=== PATIENT | male | born 1980 | race African-American/Black ===

== ENCOUNTER 2018-03-02 18:32 | Emergency (ER) | payer SELFPAY ==
[~2018-03-02] VITALS: Ht 160 cm; Wt 59.0 kg
[2018-03-02 19:25] VITALS: BP 168/109
[2018-03-02] MEDS ORDERED: VENTOLIN HFA18 GM INH (19:47)
[2018-03-02] MEDS ORDERED: AZIT250T PO (19:47)
[2018-03-02] MEDS ORDERED: PRED50TA PO (19:47)
[2018-03-02] MEDS ORDERED: BENZ100C PO (19:47)
--- NOTE | 2018-03-02 19:49 | PHYS DOC ---
Past Medical History Past Medical History: No Pertinent History Past Surgical History: No Surgical History Alcohol Use: Occasionally Drug Use: None Adult General Chief Complaint Chief Complaint: COUGH HPI HPI Patient is a 37 year old male with history of bronchitis who presents today complaining over productive cough for years. Patient states he used to be a chain smoker and stopped smoking recently. Patient states for the last 1-2 weeks as noted his coughing has gotten worse especially when he is outside in the cold. Patient denies any fever. Denies any chest pain or shortness of breath. He states his symptoms feel like bronchitis. Review of Systems Review of Systems Constitutional: Denies fever or chills [] Eyes: Denies change in visual acuity, redness, or eye pain [] HENT: Denies nasal congestion or sore throat [] Respiratory: Reports a productive cough, denies shortness of breath [] Cardiovascular: No additional information not addressed in HPI [] GI: Denies abdominal pain, nausea, vomiting, bloody stools or diarrhea [] : Denies dysuria or hematuria [] Musculoskeletal: Denies back pain or joint pain [] Integument: Denies rash or skin lesions [] Neurologic: Denies headache, focal weakness or sensory changes [] All other systems were reviewed and found to be within normal limits, except as documented in this note. Current Medications Current Medications Current Medications Medications (Trade) Dose Ordered Sig/Latasha Start Time Stop Time Status Last Admin Dose Admin Albuterol/ Ipratropium (Duoneb) 3 ml 1X ONCE 03/02/18 20:00 03/02/18 20:01 Benzonatate (Tessalon Perle) 100 mg 1X ONCE 03/02/18 20:00 03/02/18 20:01 03/02/18 19:37 100 MG Prednisone (Prednisone) 60 mg 1X ONCE 03/02/18 20:00 03/02/18 20:01 03/02/18 19:37 60 MG Allergies Allergies Allergies Coded Allergies Type Severity Reaction Last Updated Verified No Known Drug Allergies 03/02/18 No Physical Exam Physical Exam Constitutional: Well developed, well nourished, no acute distress, non-toxic appearance. [] HENT: Normocephalic, atraumatic, bilateral external ears normal, oropharynx moist, no oral exudates, nose normal. [] Eyes: PERRLA, EOMI, conjunctiva normal, no discharge. [] Neck: Normal range of motion, no tenderness, supple, no stridor. [] Cardiovascular:Heart rate regular rhythm, no murmur [] Lungs & Thorax: Bilateral breath sounds clear to auscultation [] Abdomen: Bowel sounds normal, soft, no tenderness, no masses, no pulsatile masses. [] Skin: Warm, dry, no erythema, no rash. [] Back: No tenderness, no CVA tenderness. [] Extremities: No tenderness, no cyanosis, no clubbing, ROM intact, no edema. [] Neurologic: Alert and oriented X 3, normal motor function, normal sensory function, no focal deficits noted. [] Psychologic: Affect normal, judgement normal, mood normal. [] Current Patient Data Vital Signs Vital Signs Date Time Temp Pulse Resp B/P (MAP) Pulse Ox O2 Delivery O2 Flow Rate FiO2 03/02/18 19:25 98.3 112 20 168/109 (128) 95 Room Air 98.3 EKG EKG [] Radiology/Procedures Radiology/Procedures [] Course & Med Decision Making Course & Med Decision Making Pertinent Labs and Imaging studies reviewed. (See chart for details) This is a 37-year-old male patient presenting to the ED today with symptoms consistent of bronchitis. Will be discharged with albuterol inhaler, prednisone and Tessalon Perles. Follow-up with PCP in 1-2 weeks. Provided return precautions and discharged in stable condition.Significant other requesting we give antibiotics to cover him for pneumonia. Informed them this is probably viral bronchitis. Prescription for azithromycin given. Blood pressure was 168/109, no history of hypertension. Encouraged this patient to follow-up with her PCP for blood pressure monitoring. He has no cardiac or neurological symptoms. Dragon Disclaimer Dragon Disclaimer This electronic medical record was generated, in whole or in part, using a voice recognition dictation system. Departure Departure Impression: Primary Impression: Acute bronchitis Additional Impression: High blood pressure Disposition: 01 HOME, SELF-CARE Condition: STABLE Referrals: NO PCP (PCP) Follow-up with her primary care doctor in 1-2 weeks Patient Instructions: Acute Bronchitis, Hypertension Additional Instructions: You were evaluated in the emergency room for bronchitis. Avoid being outside in the cold for long hours and this will trigger more coughing. Take the prescribed antibiotics until completed. Use the rest of the medications as ordered. Establish care with a primary care doctor and follow-up in 2 weeks. Your blood pressure was 168/109, normal blood pressures less than 120/80. Please establish care with a primary care doctor to follow up for this. Scripts Azithromycin (ZITHROMAX) 250 Mg Tablet 1 PKG PO UD, #1 PKG Prov: AMANDA RODRIGUEZ APRN 03/02/18 Albuterol Sulfate (VENTOLIN HFA INHALER) 18 Gm Hfa.aer.ad 2 PUFF INH Q4HRS for FOR ASTHMA, #1 INHALER 0 Refills Prov: AMANDA RODRIGUEZ APRN 03/02/18 Benzonatate (TESSALON PERLE) 100 Mg Capsule 1 CAP PO TID, #30 CAP Prov: AMANDA RODRIGUEZ APRN 03/02/18 Prednisone (PREDNISONE) 50 Mg Tablet 1 TAB PO DAILY, #5 TAB Prov: AMANDA RODRIGUEZ APRN 03/02/18 Problem Qualifiers Primary Impression: Acute bronchitis Bronchitis organism: unspecified organism Qualified Codes: J20.9 - Acute bronchitis, unspecified Additional Impression: High blood pressure Hypertension type: unspecified Qualified Codes: I10 - Essential (primary) hypertension AMANDA RODRIGUEZ APRN Mar 02, 2018 19:49
[2018-03-02] MEDS ORDERED: BENZONATATE 100 MG CAPSULE. PO ONE (20:00)
[2018-03-02] MEDS ORDERED: predniSONE 20 MG TABLET PO ONE (20:00)
[2018-03-02] MEDS ORDERED: IPRATRPIUM/ALBUTEROL 0.5/2.5MG 3 ML NEBU. NEB ONE (20:00)
== END 2018-03-02 19:50 | disposition home or self-care (01) ==
LOC: ER 18:32
DX: J20.9 Acute bronchitis, unspecified (principal); I10 Essential (primary) hypertension
CPT/HCPCS: 94640; 99283; J7512; J7620